=== PATIENT | male | born 1955 | race Caucasian/White ===

== ENCOUNTER → 2016-05-30 | Outpatient (CLI) | payer OTHER | END | disposition home or self-care (01) | LOC: C.PATH 17:15 | PROVIDERS: ATTEND Orthopaedic Surgery Sports Medicine | DX: L72.0 Epidermal cyst (principal) ==

== ENCOUNTER → 2016-09-16 | Outpatient (CLI) | payer OTHER ==
[2016-09-16 13:14] LABS: BASO % 0.7 %; BASO ABS # 0.04 K/uL (0-0.2); COMPLETE YES; EOS % 1.9 %; HEMATOCRIT 45.7 % (42-52); IG% 0.2 %; LYMPH % 35.5 %; LYMPH ABS # 2.01 K/uL (1.2-3.4); MEAN CELL VOLUME 89.1 fL (80-100); MEAN CORPUSCULAR HGB CONC 32.6 g/dl (32-36); MEAN PLATELET VOLUME 9.5 fL (7.4-10.4); MONO % 7.2 %; NEUT % 54.5 %; PLATELET COUNT 231 K/uL (130-400); RED BLOOD COUNT 5.13 M/uL (4.7-6.1); WHITE BLOOD COUNT 5.66 K/uL (4.8-10.8)
[2016-09-16 15:26] LABS: ALT/SGPT 20 U/L (12-78); BLOOD UREA NITROGEN 12 mg/dl (7-18); BUN/CREATININE RATIO 14.3 (10-20); CALCIUM 9.4 mg/dl (8.5-10.1); CARBON DIOXIDE 29 mmol/L (21-32); CHLORIDE 106 mmol/L (98-107); CHOLESTEROL 178 mg/dl (0-200); CREATININE 0.81 mg/dl (0.60-1.40); GLUCOSE 85 mg/dl (70-99); POTASSIUM 4.4 mmol/L (3.5-5.1); SODIUM 140 mmol/L (136-145); TRIGLYCERIDES 62 mg/dl (0-150); VERY LOW DENSITY LIPOPROT CALC 12 mg/dl
[2016-09-16 15:31] LABS: ALB/GLOB RATIO 1.2 (0.9-2); ALKALINE PHOSPHATASE 70 U/L (45-117); AST/SGOT 16 U/L (15-37); CHOLESTEROL/HDL RATIO 2.8; HDL CHOLESTEROL 63 mg/dl; LDL CHOLESTEROL CALCULATED 103 mg/dl
== END | disposition home or self-care (01) ==
LOC: C.LAB 12:36
PROVIDERS: ATTEND Nurse Practitioner Adult Health
DX: Z00.00 Encounter for general adult medical examination without abnormal findings (principal)

== ENCOUNTER 2017-06-05 08:14 | Emergency (ER) | payer OTHER ==
[~2017-06-05] VITALS: Ht 177.8 cm; Wt 73.1 kg
[2017-06-05 08:19] VITALS: TEMP 36.7; Ht 177.8 cm; Wt 73.1 kg
[2017-06-05] MEDS ORDERED: KETOROLAC TROMETHAMINE 30 MG/ML VIAL IV STA (08:32)
[2017-06-05] MEDS ORDERED: ACET-1256 PO (08:44)
[2017-06-05 08:52] LABS: BASO % 0.4 %; BASO ABS # 0.03 K/uL (0-0.2); EOS % 0.6 %; EOS ABS # 0.05 K/uL (0-0.5); HEMATOCRIT 42.9 % (42-52); HEMOGLOBIN 14.6 g/dL (14.0-18.0); IG# 0.01 K/uL (0.00-0.02); LYMPH % 18.9 %; LYMPH ABS # 1.54 K/uL (1.2-3.4); MEAN CELL VOLUME 86.8 fL (80-100); MEAN CORPUSCULAR HEMOGLOBIN 29.6 pg (25-34); MEAN PLATELET VOLUME 9.2 fL (7.4-10.4); MONO % 7.6 %; MONO ABS # 0.62 K/uL (0.11-0.59); NEUT % 72.4 %; PLATELET COUNT 219 K/uL (130-400); RED CELL DISTRIBUTION WIDTH CV 14.1 % (11.5-14.5); RED CELL DISTRIBUTION WIDTH SD 44.7 fL (36.4-46.3); WHITE BLOOD COUNT 8.15 K/uL (4.8-10.8)
[2017-06-05 09:12] LABS: ALBUMIN 3.6 gm/dl (3.4-5.0); CALCIUM 8.7 mg/dl (8.5-10.1); CREATININE 0.84 mg/dl (0.60-1.40); POTASSIUM 4.2 mmol/L (3.5-5.1); TOTAL PROTEIN 7.1 gm/dl (6.4-8.2)
--- NOTE | 2017-06-05 09:22 | DIAGNOSTIC IMAGING REPORT ---
L WRIST MIN 3 VIEWS ROUTINE CLINICAL HISTORY: Left hand and wrist pain following injury. Possible infection. COMPARISON: None FINDINGS: Alignment of the left wrist is anatomic. There is no acute fracture or evidence for osteomyelitis. A 6 mm lucent lesion with sclerotic margin within the scaphoid suggests a cyst. There may be a cyst within the capitate. An 8 mm sclerotic focus within the lunate is likely benign. There is mild soft tissue swelling. IMPRESSION: No acute fracture or evidence of osteomyelitis within the left wrist. Electronically signed by: Carlton Hardy M.D. 06/05/2017 9:21 AM Dictated Date/Time: 06/05/2017 9:18 AM
--- NOTE | 2017-06-05 09:24 | DIAGNOSTIC IMAGING REPORT ---
L HAND MIN 3 VIEWS ROUTINE CLINICAL HISTORY: hand and wrist pain, eval injury, infection COMPARISON: None FINDINGS: A ring on the fourth finger is noted. There are are lucent lesions with sclerotic margins within the capitate and scaphoid which suggest cysts. A focus of sclerosis within the capitate is benign. No fracture or osteolysis is identified within the left hand. 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 IMPRESSION: No fracture or evidence of osteomyelitis within the left hand by radiography. Electronically signed by: Carlton Hardy M.D. 06/05/2017 9:23 AM Dictated Date/Time: 06/05/2017 9:21 AM
--- NOTE | 2017-06-05 11:07 | EMERGENCY ROOM VISIT NOTE ---
ED Visit Note First contact with patient: 08:22 CHIEF COMPLAINT: Left hand/wrist pain HISTORY OF PRESENT ILLNESS: This 61-year-old male patient presents to the emergency department by private vehicle complaining of pain in the left hand and wrist after doing some repetitive twisting motions 2 days ago. The patient is able to move their wrist. The patient states the pain is aching and 8/10. No laceration, no weakness. No numbness or tingling. The patient denies any other injury. The patient is able to move their fingers and elbow without difficulty. The patient has not had a previous fracture to this wrist. The patient has taken Tylenol for the pain. The patient denies fevers or chills. He denies any associated chest pain, SOB, REVIEW OF SYSTEMS: A 6 system review of systems was performed with positives and pertinent negatives in the HPI. ALLERGIES: No known allergies MEDICATIONS: No medications PMH: No significant past medical history. SOCIAL HISTORY: Lives at home. He is a current everyday smoker, 1 pack per day , denies alcohol or recreational drugs. PHYSICAL EXAM: Vital Signs: Reviewed Nurse's notes, vital signs stable. GENERAL : Pleasant and cooperative, in no acute distress, but appears to be in pain, well-developed, well-nourished. NEURO: Alert and oriented to person place and time. Normal sensation to light and sharp touch. MUSCULOSKELETAL: There is no deformity of the left hand or wrist. There is tenderness with palpation of the base of the left palm. There is tenderness with passive and active flexion and extension of the wrist and fingers. There is no edema. There is no erythema or warmth. There is no snuff box tenderness. Range of motion is somewhat limited due to pain. There is no tenderness of the elbow, hand or fingers. 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 Radial pulse 2+. SKIN: Normal and intact. The hand is warm and well perfused with capillary refill less than 2 seconds. EMERGENCY DEPARTMENT COURSE: I examined the patient. Differential diagnosis includes sprain/strain, contusion, cellulitis, tenosynovitis, tendinitis, carpal tunnel syndrome, among others. Basic labs were performed, these appear normal. Patient was given IV Toradol for the pain. An X-ray of the left hand and wrist was reviewed by myself and radiologist and showed no acute abnormalities. A wrist lacer splint was placed under my direction and the position was satisfactory. Neurovascular status rechecked and intact. Patient reports improved pain after the Toradol and placement of the splint. Patient was encouraged to follow-up with his orthopedic doctor next few days for further evaluation of his wrist pain, was given strict return precautions should his symptoms worsen, he verbalized understanding. Patient was discharged home in stable condition and ambulatory. Medication Reconciliation: I attest that I have personally reviewed the patient' s current medication list. Patient was found to have an elevated blood pressure, which was felt to be situational. Current/Historical Medications Scheduled Acetaminophen (Tylenol), 1,000 MG PO DIRECTED Vital Signs Date Time Temp Pulse Resp B/P (MAP) Pulse Ox O2 Delivery O2 Flow Rate FiO2 06/05/17 11:20 72 18 128/84 98 06/05/17 10:21 68 18 124/80 99 Room Air 06/05/17 08:19 36.7 92 18 153/96 97 Room Air Laboratory Results 06/05/17 08:45 Red Blood Count 4.94, Mean Corpuscular Volume 86.8, Mean Corpuscular Hemoglobin 29.6, Mean Corpuscular Hemoglobin Concent 34.0, Mean Platelet Volume 9.2, Neutrophils (%) (Auto) 72.4, Lymphocytes (%) (Auto) 18.9, Monocytes (%) (Auto) 7.6, Eosinophils (%) (Auto) 0.6, Basophils (%) (Auto) 0.4, Neutrophils # (Auto) 5.90, Lymphocytes # (Auto) 1.54, Monocytes # (Auto) 0.62, Eosinophils # (Auto) 0.05, Basophils # (Auto) 0.03 06/05/17 08:45 Test 06/05/17 08:45 White Blood Count 8.15 K/uL (4.8-10.8) Red Blood Count 4.94 M/uL (4.7-6.1) Hemoglobin 14.6 g/dL (14.0-18.0) Hematocrit 42.9 % (42-52) Mean Corpuscular Volume 86.8 fL (80-100) Mean Corpuscular Hemoglobin 29.6 pg (25-34) Mean Corpuscular Hemoglobin Concent 34.0 g/dl (32-36) Platelet Count 219 K/uL (130-400) Mean Platelet Volume 9.2 fL (7.4-10.4) Neutrophils (%) (Auto) 72.4 % Lymphocytes (%) (Auto) 18.9 % Monocytes (%) (Auto) 7.6 % Eosinophils (%) (Auto) 0.6 % Basophils (%) (Auto) 0.4 % Neutrophils # (Auto) 5.90 K/uL (1.4-6.5) Lymphocytes # (Auto) 1.54 K/uL (1.2-3.4) Monocytes # (Auto) 0.62 K/uL (0.11-0.59) Eosinophils # (Auto) 0.05 K/uL (0-0.5) Basophils # (Auto) 0.03 K/uL (0-0.2) RDW Standard Deviation 44.7 fL (36.4-46.3) RDW Coefficient of Variation 14.1 % (11.5-14.5) Immature Granulocyte % (Auto) 0.1 % Immature Granulocyte # (Auto) 0.01 K/uL (0.00-0.02) Erythrocyte Sedimentation Rate 7 mm/hr (0-14) Anion Gap 2.0 mmol/L (3-11) Est Creatinine Clear Calc Drug Dose 95.4 ml/min Estimated GFR () 109.5 Estimated GFR (Non- 94.5 BUN/Creatinine Ratio 16.3 (10-20) Calcium Level 8.7 mg/dl (8.5-10.1) Total Bilirubin 0.4 mg/dl (0.2-1) Aspartate Amino Transf (AST/SGOT) 16 U/L (15-37) Alanine Aminotransferase (ALT/SGPT) 19 U/L (12-78) Alkaline Phosphatase 87 U/L (45-117) C-Reactive Protein 0.75 mg/dl (0-0.29) Total Protein 7.1 gm/dl (6.4-8.2) Albumin 3.6 gm/dl (3.4-5.0) Globulin 3.5 gm/dl (2.5-4.0) Albumin/Globulin Ratio 1.0 (0.9-2) Chemistry Specimen Hemolysis Medications Administered Medications (Trade) Dose Ordered Sig/Drew Route Start Time Stop Time Status Last Admin Dose Admin Ketorolac Tromethamine (Toradol Inj) 15 mg NOW STAT IV 06/05/17 08:32 06/05/17 08:36 DC 06/05/17 08:55 15 MG Departure Information Impression Primary Impression: Left wrist sprain Dispostion Home / Self-Care Condition GOOD Referrals No Doctor, Assigned (PCP) Gonzalo Betancourt M.D. Patient Instructions ED Sprain Wrist, [facility] Additional Instructions DISCHARGE INSTRUCTIONS & TREATMENT: You have been evaluated and treated in the emergency department today for your left hand and wrist pain. Please wear the wrist splint for the next several days until the pain subsides. You may alternate between ice and heat to the area of pain to help with discomfort and swelling. Keep the wrist elevated as much as possible. For pain, you may take ibuprofen 600 mg every 6-8 hours and/or Tylenol 1000 mg every 8 hours as needed. Please follow-up with your orthopedic surgeon for recheck in the next few days. Work Instructions Return To Work: 1 day Problem Qualifiers Primary Impression: Left wrist sprain Encounter type: initial encounter Qualified Codes: S63.502A - Unspecified sprain of left wrist, initial encounter
[2017-06-05 11:20] VITALS: BP 128/84; PULSE 72; O2SAT 98
== END 2017-06-05 11:21 | disposition home or self-care (01) ==
LOC: C.EDB 08:15 → C.EDA 11:21
DX: S63.502A Unspecified sprain of left wrist, initial encounter (principal); X50.1XXA Overexertion from prolonged static or awkward postures, initial encounter; F17.210 Nicotine dependence, cigarettes, uncomplicated

== ENCOUNTER 2023-07-15 09:29 | Inpatient (IN) ==
--- NOTE | 2023-06-05 09:26 | PAT Medication Instructions ---
Medication Instructions Date of Service June 05, 2023 Home Medications Galique 1,000 mg PO QAM naproxen 500 mg tablet 500 mg PO BID PRN Pain tamsulosin 0.4 mg capsule 0.4 mg PO QAM ASK your surgeon for instructions naproxen 500 mg tablet 500 mg PO BID PRN Pain STOP taking 2 weeks before surgery (or as soon as possible if surgery is within 2 weeks) Galique 1,000 mg PO QAM Take morning of surgery With a small sip of water, OTHERWISE NOTHING TO EAT OR DRINK AFTER MIDNIGHT: tamsulosin 0.4 mg capsule 0.4 mg PO QAM Other Notes If you have any questions please call us at [phone] or [phone] or [phone] or [phone]
--- NOTE | 2023-06-17 10:22 | Anesthesiology Consultation ---
Date of Service June 17, 2023 Assessment & Plan (1) Encounter for pre-operative examination: - Infectious disease screening: Per assessment on 06/17/23: No known infectious disease contacts or current infectious disease symptoms. No noted recent Covid positive test result. - Patient acceptable risk for surgery pending surgeon-ordered PCP preop evaluation ([facility] in [place], appt ~06/30). Chart Review Chart Review: Patient seen in Pre Admission Testing History Surgery Operation Date: 07/13/23 07:45 Proposed Procedures p L3-L5 Decompression and Fusion Spinal Cord Monitoring - Jacques Wang, DO Height/Weight Height: 5 ft 10 in Weight: 81.5 kg Allergies Allergy/AdvReac Type Severity Reaction Status Date / Time oxycodone [From Percocet] AdvReac Mild N/V Verified 06/09/23 13:15 Medications Home Medications Medication Instructions Recorded Confirmed Last Taken Galique 1,000 mg PO QAM 06/03/23 06/03/23 Unknown naproxen 500 mg tablet 500 mg PO BID PRN Pain 06/03/23 06/03/23 Unknown tamsulosin 0.4 mg capsule 0.4 mg PO QAM 06/03/23 06/03/23 Unknown Past Medical History Medical History BPH (benign prostatic hyperplasia) Hearing loss History of kidney stones Lumbar back pain Scoliosis Exercise / Class Metabolic Activity II 4-5 Yardwork/Stairs/Walk up hill (one FS: no CP, no COB) Past Family History Family History Other No family history of adverse response to anesthesia Past Surgical History Surgical History History of decompression of ulnar nerve Right History of prostate biopsy History of repair of right rotator cuff Past Anesthesia History No Hx of Anesthesia Complications and No Family Hx of Anesthesia Complications History of PONV No Hx of PONV and No Hx of Motion Sickness Social History Smoking Status: Former smoker Do You Dip or Chew Tobacco: No Smoking End Date: Quit 04/29/23 Hx Alcohol Use: No (Hx ETOH use age 20s) Hx Substance Use: No substance use type: does not use Review of Systems Patient denies chest pain, shortness of breath, dyspnea on exertion, fever, chills, cough, wheezing, palpitations. Physical Exam Vital Signs BP 113/71 P 70 TEMP 98.2 SP02 96%RA RESP 16 Physical Full cervical extension range of motion. Full TMJ range of motion. TMD 3 finger breaths Mallampati Score 2 Dentition: missing side/molar Lungs: mild lung base crackles Cardiac: regular rate and rhythm, no murmurs noted Spine: normal Carotid arteries: negative bruit Extremities: no LE edema Lab Results Anesthesia Preop Results Results Anesthesia Widget: WBC 5.52 K/ul (4.8-10.8) 06/17/23 Hgb 14.3 g/dl (14.0-18.0) 06/17/23 Hct 43.2 % (42.0-52.0) 06/17/23 Plt 243 K/uL (130-400) 06/17/23 Na 141 mmol/L (136-145) 06/17/23 K 4.2 mmol/L (3.5-5.1) 06/17/23 Cl 107 mmol/L (98-107) 06/17/23 CO2 28 mmol/L (21-32) 06/17/23 BUN 16 mg/dl (6-23) 06/17/23 Creat 0.79 mg/dl (0.6-1.4) 06/17/23 Glucose Level 128 mg/dl (70-99(Fasting)) H 06/17/23 PT 10.4 Seconds (9.0-12.0) 06/17/23 PTT 27 Seconds (21-31) 06/17/23 INR 1.0 (0.9-1.1) 06/17/23 Urine Color Yellow 06/17/23 Urine Appearance Clear (Clear) 06/17/23 Urine pH 6.0 (4.5-7.5) 06/17/23 Urine Specific Leonard 1.016 (1.000-1.030) 06/17/23 Urine Protein Negative (Negative) 06/17/23 Urine Glucose (UA) Negative (Negative) 06/17/23 Urine Ketones Negative (Negative) 06/17/23 Urine Blood Negative (Negative) 06/17/23 Urine Nitrite Negative (Negative) 06/17/23 Urine Bilirubin Negative (Negative) 06/17/23 Urine Urobilinogen Negative (Negative) 06/17/23 Urine Leukocyte Esterase 1+ (Negative) H 06/17/23 Urine WBC (Auto) 0-5 /hpf (0-5) 06/17/23 Urine RBC (Auto) 0-2 /hpf (0-2) 06/17/23 Urine Hyaline Casts (Auto) 0-2 /lpf (0-2) 06/17/23 Urine Epithelial Cells (Auto) 0-2 /hpf (0-2) 06/17/23 Urine Bacteria (Auto) None Seen (None Seen) 06/17/23 Blood Type O Negative 06/17/23 Antibody Screen NEGATIVE 06/17/23 Testing Electrocardiogram Date: 06/17/23 NSR at 64bpm. iRBBB. Chest X-Ray Date: 06/17/23 FINDINGS: Lung volumes are normal. Lungs are clear. There is no pneumothorax or pleural effusion. Cardiac size is normal. Mediastinal contours are normal. There is no evidence for pulmonary edema. IMPRESSION: No acute cardiopulmonary findings.
--- NOTE | 2023-07-15 09:04 | History & Physical Bridge Note ---
Date of Service July 15, 2023 History & Physical Bridge Note I have examined the patient, reviewed the History & Physical and in the interval since the performance of the History & Physical I have noted the following changes of clinical significance: no changes noted
--- NOTE | 2023-07-15 09:08 | History & Physical Report ---
Date of Service July 15, 2023 Assessment & Plan (1) Neurogenic claudication due to lumbar spinal stenosis: Plan: Lumbar decompression and fusion L3-L5 History of Present Illness Chief Complaint: Back and bilateral leg pain Primary Care Provider: MAGGIE Bajwa This is a 67-year-old male who presents with chronic persistent back and bilaterally pain after failing course of nonoperative care is here for surgical intervention. Allergies Allergy/AdvReac Type Severity Reaction Status Date / Time oxycodone [From Percocet] AdvReac Mild N/V Verified 06/09/23 13:15 Home Medications Medication Instructions Recorded Confirmed Type Galique 1,000 mg PO QAM 06/03/23 06/03/23 History naproxen 500 mg tablet 500 mg PO BID PRN Pain 06/03/23 06/03/23 History tamsulosin 0.4 mg capsule 0.4 mg PO QAM 06/03/23 06/03/23 History Past Med/Surg History Problem List (Updated 07/15/23 @ 09:08 by Jacques Wang DO) Neurogenic claudication due to lumbar spinal stenosis Medical History BPH (benign prostatic hyperplasia) Hearing loss History of kidney stones Lumbar back pain Scoliosis Surgical History History of decompression of ulnar nerve Right History of prostate biopsy History of repair of right rotator cuff Family History Other No family history of adverse response to anesthesia Social History Smoking Status: Former smoker Tobacco Type: Cigarettes Smoking End Date: Quit 04/29/23; Second Hand Exposure: No; Do You Dip or Chew Tobacco: No; Tobacco Cessation Education Requested by Patient: No Hx Alcohol Use: No (Hx ETOH use age 20s) Hx Substance Use: No Preferred Language: Sinhala Communication Ability: Effective Tool And [employer] Manager Required: No Beliefs That Will Affect Care: None Current Living Situation: Spouse and Family Current Living Situation Comment: Lives with and son Other Information That Helps Us Care for You: No Feels Safe at Home: Yes Safety Concerns: Feels Safe At This Time Assistive Devices: Glasses and Hearing Aid - Bilateral Physical Exam Physical Exam: Patient is alert and oriented Heart regular in rhythm Lungs clear
[~2023-07-15 09:29] MED LIST: DEXAMETHASONE SOD INJ 4 MG/ML VIAL ONE; LIDOCAINE 2% 2 ML VIAL/AMP(20MG/ML) INFIL ONE; MIDAZOLAM HCL 1 MG/ML 2ML VIAL ONE; ONDANSETRON INJ 2 MG/ML 2 ML VIAL ONE; PROPOFOL IV EMULSION 10 MG/ML 20 ML VIAL IV ONE; ROCURONIUM BROMIDE 10 MG/ML 5 ML VIAL IV ONE; SUGAMMADEX SODIUM 200 MG/2 ML VIAL IV ONE; fentaNYL citrate PF 100 MCG/2 ML VIAL ONE
[2023-07-15] MEDS ORDERED: ONDANSETRON INJ 2 MG/ML 2 ML VIAL IV PRN ×2 (09:55→14:54)
[2023-07-15] MEDS ORDERED: ePHEDrine sulfate 50 MG/ML AMP IV PRN (09:55)
[2023-07-15] MEDS ORDERED: ATROPINE SULFATE 0.1 MG/ML 10ML SYR IV PRN (09:55)
[2023-07-15] MEDS: LR 15ML/HR IV SCH ×2 (10:00→14:37)
[2023-07-15] MEDS: CeleBREX 200 MG CAP PO SCH ×2 (10:01→14:36)
[2023-07-15] MEDS: GABAPENTIN 300 MG CAP PO SCH ×2 (10:01→14:36)
[2023-07-15] MEDS: ACETAMINOPHEN 500 MG TAB PO SCH ×2 (10:01→14:36)
[2023-07-15] MEDS: LR 60ML/HR IV SCH ×2 (10:02→14:37)
[2023-07-15] MEDS: ceFAZolin 2000MG 2,000 MG/15 ML SYR IV SCH ×3 (10:14→17:47)
[2023-07-15] MEDS ORDERED: GLYCOPYRROLATE 0.2 MG/ML VIAL ONE (10:40)
[2023-07-15] MEDS ORDERED: ePHEDrine sulfate 50 MG/5 ML SYR ONE (10:45)
[2023-07-15] MEDS: ceFAZolin 330 MG/ML 1 GM VIAL ONE (11:01)
[2023-07-15] MEDS: BUPIVACAINE/EPINEPHRINE 0.25% 1:200,000 30 ML VIAL ONE (12:13)
--- NOTE | 2023-07-15 12:19 | Operative Report ---
Post Operative Report Pre & Post Diagnosis Operation Date: 07/15/23 11:25 Pre-Op Diagnosis: Spinal Stenosis, Lumbar Region Neurogenic Claudication Neuroforaminal stenosis L3-L4 L4-5 Post-Op Diagnosis: Same I identified the patient and participated in the time-out.: Yes Procedure Operation Date: 07/15/23 11:25 Actual Procedures #1 number decompression bilateral medial facetectomies and foraminotomies L3-L4 L4-5. #2 posterior spinal fusion L3-L5. #3 placed posterior instrumentation L3-L5. #4 interbody fusion L3-L4 L4-5 #5 placement of Spira 12 x 26 mm at L3-L4 and 14 x 26 mm x 2 at L4-L5. #6 placement locally harvested morselized autograft in the posterior gutters. #7 placement of infuse collagen sponge, with Koros in the posterior gutters and Morpheus bone graft interbody space. Surgeon Jacques Wang, Supervisor Costuming Parul Ramirez Estimated Blood Loss 200 Findings Consistent with Post-Op Diagnosis Specimens None Indications This is a 67-year-old male presents above-mentioned diagnosis. Course of nonoperative care is here for surgical invention. Description of Procedure Patient was met with identified informed consent obtained. Patient was then taken to the operative suite underwent patient placed in a prone position on the Juan Luis table top the Jabier frame. All bony prominences well-padded eyes inspected to ensure no external precipice spinal. This point the lumbar spine was prepped and draped in normal sterile fashion. Sharp dissection with the ass istance of Bovie cautery form down to and exposing the lamina transverse processes of L3-L4-L5 bilaterally. For calcified fashion complete laminectomy L4 was performed including bilateral medial facetectomies and foraminotomies addressing all spinal stenosis. I then performed a complete laminectomy of L3 including bilateral medial facetectomies and foraminotomies addressing severe spinal stenosis. Pedicle screws then placed in L3-L4-L5 bilaterally with assistance of fluoroscopy and proper size geno placed. By way of transforaminal approach on the left a discectomy of L for L5 was performed endplates guarded to subcortical bleeding bone and the 14 x 26 mm spiral cage filled with Morpheus bone graft tapped in position. Then proceeded to L3-L4 by way of transforaminal approach on the left complete discectomy performed endplates guided to subcortical bleeding bone and a 12 x 26 mm spiral cage filled with Morpheus bone graft tapped in position. Then proceeded to the right transforaminal region at L4-L5 completed the discectomy endplates guided to subcortical bleeding bone and placed a second 14 x 26 mm Spira cage with Morpheus bone graft into position. The rods were then compressed locked in final position bilaterally. The transverse processes of L3 L4-5 burred to subcortical bleeding bone. Infuse collagen sponge combined with Koros bone graft and local autograft placed in the posterior gutters. 15 round BECKY inserted. The incision was then closed with 1 Vicryl to fascia 2-0 Vicryl subcutaneously and 4 Monocryl for final skin closure. Steri-Strips sterile dressing placed. Patient awakened taken to the PACU in stable condition. Please note spinal cord monitoring was utilized at the procedure no changes noted. Lastly Parul Ramirez was present at the entire surgery involved the patient positioning complex course of the surgery and final skin closure. I attest to the content of the Intraoperative Record and any orders documented therein. Any exceptions are noted below.
[2023-07-15] MEDS: fentaNYL citrate PF 100 MCG/2 ML VIAL IV PRN (13:03)
--- NOTE | 2023-07-15 13:05 | Anesthesiology Progress Note ---
Date of Service July 15, 2023 Anesthesia Post Procedure Vital Signs Vital Signs: Temp Pulse Pulse Resp BP Pulse Ox O2 Del Method 07/15/23 13:00 82 12 111/74 99 Nasal Cannula 07/15/23 12:50 83 16 109/72 99 Nasal Cannula 07/15/23 12:40 88 16 112/66 98 Nasal Cannula 07/15/23 12:30 96.8 F L 82 14 120/72 99 Nasal Cannula 07/15/23 09:50 98.2 F 66 20 146/88 H 98 Room Air O2 Flow Rate 07/15/23 13:00 2 07/15/23 12:50 2 07/15/23 12:40 3 07/15/23 12:30 3 07/15/23 09:50 Pain Intensity Back: Pain Intensity: 5 Transfer of Care Handoff Completed per policy Notes Mental Status: alert / awake / arousable and participated in evaluation Patient Amnestic to Procedure: Yes Nausea / Vomiting: adequately controlled Pain: adequately controlled Airway Patency, RR, SpO2: stable & adequate BP & HR: stable & adequate Hydration State: stable & adequate Anesthetic Complications: no major complications apparent and Pt Satisfied with anesthetic care
--- NOTE | 2023-07-15 14:04 | Fluoroscopy Report ---
INTRAOPERATIVE RADIOGRAPHS CLINICAL HISTORY: L3-L5 spinal fusion. Fluoro time: 18 seconds Ka,r: 11.89 mGy FINDINGS: 2 spot fluoroscopic views of the lumbar spine are presented. There has been discectomy at L 3-L4 and L4-L5 with laminectomy and posterior fusion at L3-L5. Interpedicular screws are present at a ll levels. The orthopedic hardware appears intact. IMPRESSION: Intraoperative images from lumbar spinal fusion surgery as above. Electronically signed by: Marcus Ewing M.D. 07/15/2023 2:02 PM
[2023-07-15] MEDS: FLOSEAL HEMOSTATIC MATRIX 10ML TOP ONE (14:37)
[2023-07-15] MEDS: LACTATED RINGER'S 1,000 ML IV SCH (14:50)
[2023-07-15] MEDS ORDERED: ONDANSETRON 4 MG OD TAB PO PRN (14:54)
[2023-07-15] MEDS ORDERED: HYDROmorphone INJ 0.5 MG/0.5 ML SYR IV PRN (14:54)
[2023-07-15] MEDS ORDERED: METOCLOPRAMIDE HCL INJ 5 MG/ML 2 ML VIAL IV PRN (14:54)
[2023-07-15] MEDS ORDERED: PROMETHAZINE HCL 12.5 MG in SODIUM CHLORIDE 0.9% 50 ML IV PRN (14:54)
[2023-07-15] MEDS ORDERED: hydrOXYzine HCl 25 MG TAB PO PRN (14:54)
[2023-07-15] MEDS ORDERED: LORazepam 0.5 MG in SYRINGE 0.25 ML IV PRN (14:54)
[2023-07-15] MEDS ORDERED: DO NOT ADMINISTER PNEUMOCOCCAL VACCINE PRN (14:54)
[2023-07-15] MEDS ORDERED: NALOXONE HCL 0.4 MG/1 ML VIAL/CARP IV PRN (14:54)
[2023-07-15] MEDS ORDERED: MAGNESIUM HYDROXIDE SUSP 30 ML UDC PO PRN (14:54)
[2023-07-15] MEDS ORDERED: DO NOT ADMINISTER FLU VACCINE PRN (14:54)
[2023-07-15] MEDS ORDERED: LORazepam 0.5 MG TAB PO PRN (14:54)
[2023-07-15] MEDS ORDERED: SOD PHOSPHATE/SOD BIPHOSPHATE ENEMA 132 ML BTL PR PRN (14:54)
[2023-07-15] MEDS ORDERED: ACETAMINOPHEN 500 MG TAB PO PRN (14:54)
[2023-07-15] MEDS ORDERED: bisacodyL 10 MG SUPP PR PRN (14:54)
[2023-07-15] MEDS ORDERED: HYDROmorphone INJ 1 MG/ML SYRINGE IV PRN (14:54)
[2023-07-15] MEDS ORDERED: diphenhydrAMINE Capsule 25 MG CAP PO PRN (14:54)
[2023-07-15] MEDS ORDERED: FAMOTIDINE 20 MG TAB PO PRN (14:54)
--- NOTE | 2023-07-15 15:32 | Consultation ---
Date of Consultation July 15, 2023 Assessment & Plan (1) Neurogenic claudication due to lumbar spinal stenosis: In short, Mr. Mirza is a 67 year old gentleman now s/p lumbar decompression and fusion of L3-L5 #Neurogenic claudication s/p lumbar decompression/fusion L3-L5 POD [address] Wang 07/15/2023 PT/OT per primary analgesia and DVTppx per PCP -CBC in am for monitoring of post-op anemia -Hgb preop 14.3 -BMP in am for monitoring renal fx #BPH continue tamsulosin # prior tobacco use encouraged continued cessation DVT SCDs Dispo 1-2 days, per primary Thank you for this consultation. We will follow the patient with you during their hospital stay. You can reach a member of the [facility] Hospitalist Team 01/09 via [employer] History of Present Illness Requesting Physician: Kathleen Reason for Consultation: Medical Comanagement Attending Physician: Jacques Wang, DO History of Present Illness Mr. Jacques Mirza is a 67 year old gentleman with a history of BPH, prior tobacco use, and neurogenic claudication s/p lumbar decompression/fusion L3-L5. Medicine consulted for comanagement. Patient states he has been doing very well, notes tobacco cessation since April. Denies any current chest pain, SOB, uncontrolled post-operative pain. Reports radiculopathy in left leg is not present at this time and that he feels optimistic post-operatively. Allergies Allergy/AdvReac Type Severity Reaction Status Date / Time oxycodone [From Percocet] AdvReac Mild N/V Verified 07/15/23 09:54 Home Medications Medication Instructions Recorded Confirmed Type Galique 1,000 mg PO QAM 06/03/23 07/15/23 History naproxen 500 mg tablet 500 mg PO BID PRN Pain 06/03/23 07/15/23 History tamsulosin 0.4 mg capsule 0.4 mg PO QAM 06/03/23 07/15/23 History cholecalciferol (vitamin D3) 125 125 mcg PO DAILY 07/15/23 07/15/23 History mcg (5,000 unit) tablet (Vitamin D3) Patient History Medical History BPH (benign prostatic hyperplasia) Hearing loss History of kidney stones Lumbar back pain Scoliosis Surgical History History of decompression of ulnar nerve Right History of prostate biopsy History of repair of right rotator cuff Family History Other No family history of adverse response to anesthesia Social History Smoking Status: Former smoker Tobacco Type: Cigarettes Smoking End Date: Quit 04/29/23; Second Hand Exposure: No; Do You Dip or Chew Tobacco: No; Tobacco Cessation Education Requested by Patient: No Hx Alcohol Use: No (Hx ETOH use age 20s) Hx Substance Use: No Preferred Language: Serbian Communication Ability: Effective Surgical Technologist Required: No Beliefs That Will Affect Care: None Current Living Situation: Spouse and Family Current Living Situation Comment: Lives with and son Other Information That Helps Us Care for You: No Feels Safe at Home: Yes Safety Concerns: Feels Safe At This Time Assistive Devices: Cane Review of Systems Review of Systems: Constitutional: (-) fever/chills, (-) recent loss of weight, (-) appetite changes, (-) night sweats. Head: (-) headache, (-) dizziness. Eye: (-) blurring of vision, (-) double vision, (-) redness. Ear: (-) hearing loss, (-) discharge, (-) vertigo Nose: (-) discharge, (-) bleeding, (-) congestion, (-) post nasal drip. Throat: (-) sore throat, (-) hoarseness of voice, (-) odynophagia. Cardiovascular: (-) chest pain, (-) palpitations, (-) syncope, (-) orthopnea, (- ) PND, (-) leg swelling. Respiratory: (-) shortness of breath, (-) cough, (-) wheezing, (-) hemoptysis. Neuro: (-) weakness in extremities, (-) numbness, (-) tingling, (-) tremor. Gastrointestinal: (-) belly pain, (-) belly distension, (-) nausea, (-) vomiting, (-) diarrhea, (-) constipation, (-) na, (-) hematemesis, (-) hematochezia, (-) bowel incontinence Genitourinary: (-) hematuria, (-) dysuria, (-) polyuria, (-) hesitancy, (-) frequency, (-) urinary incontinence. Musculoskeletal: (-) myalgia, (-) arthralgia. Skin: (-) rashes. Endocrine: (-) heat/cold intolerance. Psychiatry: (-) depression, (-) hallucination. Physical Exam Physical Exam: GENERAL APPEARANCE: AxOx4, generally well-appearing M no acute distress. HEENT: NC, AT. MMM. EOMI, clear conjunctiva, oropharynx clear. NECK: Supple without lymphadenopathy. No stiffness or restricted ROM. HEART: Normal rate and regular rhythm, normal S1/S1, no m/r/g LUNGS: CTAB, moving air well. No crackles or wheezes are heard. ABDOMEN: Soft, nontender, nondistended with good bowel sounds heard. EXTREMITIES: Without cyanosis, clubbing or edema. NEUROLOGICAL: Grossly nonfocal. Alert and oriented, moving all 4 extremities. CN not formally tested but appear grossly intact. Skin: Warm and dry without any rash. Results & Data Vital Signs (Past 12 Hours) Vital Signs Temp Pulse Pulse Resp BP Pulse Ox O2 Del Method 07/15/23 15:19 36.4 C L 105 H 16 119/76 94 Room Air 07/15/23 14:45 36.5 C 107 H 16 105/69 94 Room Air 07/15/23 14:35 94 H 16 116/75 96 Nasal Cannula 07/15/23 14:20 96 H 12 111/68 95 Nasal Cannula 07/15/23 14:10 95 H 12 109/70 95 Nasal Cannula 07/15/23 13:55 93 H 12 102/72 95 Nasal Cannula 07/15/23 13:40 88 12 108/71 95 Nasal Cannula 07/15/23 13:30 90 12 113/73 96 Nasal Cannula 07/15/23 13:20 36.7 C 89 16 117/80 97 Nasal Cannula 07/15/23 13:10 82 16 119/80 97 Nasal Cannula 07/15/23 13:00 82 12 111/74 99 Nasal Cannula 07/15/23 12:50 83 16 109/72 99 Nasal Cannula 07/15/23 12:40 88 16 112/66 98 Nasal Cannula 07/15/23 12:30 36.0 C L 82 14 120/72 99 Nasal Cannula 07/15/23 09:50 36.8 C 66 20 146/88 H 98 Room Air O2 Flow Rate 07/15/23 15:19 07/15/23 14:45 07/15/23 14:35 2 07/15/23 14:20 2 07/15/23 14:10 2 07/15/23 13:55 2 07/15/23 13:40 2 07/15/23 13:30 2 07/15/23 13:20 2 07/15/23 13:10 2 07/15/23 13:00 2 07/15/23 12:50 2 07/15/23 12:40 3 07/15/23 12:30 3 07/15/23 09:50 Medications Administered Home Medications Medication Instructions Recorded Confirmed Last Taken Galique 1,000 mg PO QAM 06/03/23 07/15/23 Unknown naproxen 500 mg tablet 500 mg PO BID PRN Pain 06/03/23 07/15/23 Unknown tamsulosin 0.4 mg capsule 0.4 mg PO QAM 06/03/23 07/15/23 07/15/23 06:15 cholecalciferol (vitamin D3) 125 125 mcg PO DAILY 07/15/23 07/15/23 07/15/23 06:15 mcg (5,000 unit) tablet (Vitamin D3) Active Medications Generic Name Dose Route Start Last Admin Trade Name Freq PRN Reason Stop Dose Admin Acetaminophen 1,000 mg 07/15/23 06:00 07/15/23 14:36 Acetaminophen 500 Mg Tab PO 07/15/23 18:00 Not Given PREOP MARIA D Celecoxib 200 mg 07/15/23 06:00 07/15/23 14:36 Celebrex 200 Mg Cap PO 07/15/23 18:00 Not Given PREOP MARIA D Fentanyl Citrate 50 mcg 07/15/23 09:55 07/15/23 13:08 Fentanyl Citrate Pf 100 Mcg/2 Ml Vial IV 07/15/23 17:55 50 mcg Q5M PRN Administration PACU Use Only-Pain Gabapentin 300 mg 07/15/23 06:00 07/15/23 14:36 Gabapentin 300 Mg Cap PO 07/15/23 18:00 Not Given PREOP MARIA D Lactated Ringer's 1,000 mls @ 15 mls/hr 07/15/23 06:00 07/15/23 14:37 Lr IV 07/16/23 05:59 Not Given .Q24H MARIA D Lactated Ringer's 1,000 mls @ 60 mls/hr 07/15/23 06:00 07/15/23 14:37 Lr IV 07/15/23 22:39 Not Given .[id number] MARIA D Cefazolin Sodium 2,000 mg in 15 mls @ 3.75 mls/min 07/15/23 06:00 07/15/23 10:14 Ancef 2000mg IV 07/15/23 18:00 3.75 mls/min PREOP MARIA D Administration Protocol Lactated Ringer's 1,000 mls @ 100 mls/hr 07/15/23 14:54 07/15/23 14:50 Lr IV 08/14/23 14:53 100 mls/hr .Q10H MARIA D Administration
[2023-07-15] MEDS: oxyCODONE HCL IR 5 MG TAB (IMMEDIATE RELEASE) PO PRN (21:21)
[2023-07-15] MEDS: DOCUSATE SODIUM/SENNA 50/8.6MG TAB PO SCH (21:21)
[2023-07-16] MEDS: ALUMINUM/MAGNESIUM SUSP 30 ML UDC PO PRN (03:08)
[2023-07-16] MEDS: ACETAMINOPHEN 1,000 MG/100 ML VIAL IV PRN (03:11)
[2023-07-16] MEDS: POLYETHYLENE (MIRALAX) 17 GM PACK PO SCH (05:55)
[2023-07-16 06:18] LABS: BUN Creatinine Ratio 22.2 (10-20); Calcium 8.9 mg/dl (8.6-10.3); Creatinine Clr Calc Pharmacy 102.8 ml/min; Est GFR (African American) 111.9 ml/min; Est GFR (Non-African American) 96.5 ml/min; Potassium 4.3 mmol/L (3.5-5.1)
[2023-07-16 06:20] LABS: Basophils # (auto) 0.02 K/uL (0.00-0.20); Basophils % (auto) 0.1 %; Eosinophils # (auto) 0.02 K/uL (0.00-0.50); Eosinophils % (auto) 0.1 %; Hematocrit (blood only) 35.8 % (42.0-52.0); Hemoglobin 11.9 g/dl (14.0-18.0); Immature Granulocytes # (auto) 0.06 K/uL (0.01-0.20); Immature Granulocytes % (auto) 0.4 %; Lymphocytes # (auto) 1.82 K/uL (1.20-3.40); Lymphocytes % (auto) 12.7 %; Mean Corpuscular Hemoglobin 28.7 pg (25.0-34.0); Mean Corpuscular Hgb Conc 33.2 g/dL (32.0-36.0); Mean Corpuscular Volume 86.3 fL (80.0-100.0); Mean Platelet Volume 9.3 fL (9.4-12.4); Monocytes # (auto) 1.08 K/uL (0.11-0.59); Monocytes % (auto) 7.6 %; Neutrophils % (auto) 79.1 %; Platelet Count 246 K/uL (130-400); RDW Coefficient of Variation 13.7 % (11.5-14.5); RDW Standard Deviation 43.1 fL (36.4-46.3); Red Blood Count 4.15 M/uL (4.70-6.10)
[2023-07-16] MEDS: TAMSULOSIN HCL 0.4 MG CAP PO SCH ×2 (07:57→19:32)
[2023-07-16] MEDS: CHOLECALCIFEROL 125 MCG (5,000 UNITS) TAB PO SCH (07:57)
[2023-07-16] MEDS ORDERED: KETOROLAC TROMETHAMINE 15 MG/ML VIAL IV PRN (08:19)
--- NOTE | 2023-07-16 08:20 | Orthopedic Progress Note ---
Date of Service July 16, 2023 Assessment & Plan (1) Neurogenic claudication due to lumbar spinal stenosis: Plan: At this time continue physical therapy monitor BECKY operatively discharge home next few days. Admission and Anticipated Discharge Date Admission Date: July 15, 2023 Subjective Back pain is controlled leg pain improved Physical Exam Physical Exam: Patient is currently sitting up in bed. Discussed when to testing. Peers comfortable. Results & Data Vital Signs (Past 12 Hours) Vital Signs Temp Pulse Resp BP Pulse Ox O2 Del Method 07/16/23 07:43 36.8 C 75 16 115/78 97 Room Air 07/16/23 03:00 36.7 C 85 16 118/74 96 Room Air 07/15/23 23:00 36.8 C 93 H 16 115/77 96 Room Air
[2023-07-16] MEDS: KETOROLAC TROMETHAMINE 15 MG/ML VIAL IV ONE (08:43)
[2023-07-16] MEDS: dexAMETHasone 6 MG in SYRINGE 0 ML IV SCH (08:43)
--- NOTE | 2023-07-16 14:54 | Hospitalist Progress Note ---
Date of Service July 16, 2023 Assessment & Plan (1) Neurogenic claudication due to lumbar spinal stenosis: Plan: In short, Mr. Mirza is a 67 year old gentleman now s/p lumbar decompression and fusion of L3-L5 Neurogenic claudication s/p lumbar decompression/fusion L3-L5 POD 0 Acute blood loss anemia Performed by Dr Wang 07/15/2023 PT/OT per primary analgesia and DVTppx per PCP CBC downtrended to 11.9 today. BUN/Cr wnl. PT/OT pain control #BPH continue tamsulosin # prior tobacco use encouraged continued cessation DVT SCDs Thank you for this consultation. We will follow the patient with you during their hospital stay. You can reach a member of the [facility] Hospitalist Team 01/09 via [employer] [facility] Admission and Anticipated Discharge Date Admission Date: July 15, 2023 Subjective Patient seen and examined at bedside. Comfortable; not in distress. Denies fever, chills, chest pain, shortness of breath, abdominal pain or urinary symptoms. No significant overnight events Review of Systems Review of Systems: All systems reviewed & are unremarkable except as noted in Subjective Physical Exam Physical Exam: GENERAL APPEARANCE: AxOx4, generally well-appearing M no acute distress. HEENT: NC, AT. MMM. EOMI, clear conjunctiva, oropharynx clear. NECK: Supple without lymphadenopathy. No stiffness or restricted ROM. HEART: Normal rate and regular rhythm, normal S1/S1, no m/r/g LUNGS: CTAB, moving air well. No crackles or wheezes are heard. ABDOMEN: Soft, nontender, nondistended with good bowel sounds heard. EXTREMITIES: Without cyanosis, clubbing or edema. NEUROLOGICAL: Grossly nonfocal. Alert and oriented, moving all 4 extremities. CN not formally tested but appear grossly intact. Skin: Warm and dry without any rash. Results & Data Results & Data Vital Signs (Past 12 Hours) Vital Signs Temp Pulse Resp BP Pulse Ox O2 Del Method 07/16/23 07:43 36.8 C 75 16 115/78 97 Room Air 07/16/23 03:00 36.7 C 85 16 118/74 96 Room Air
[2023-07-16] MEDS: traMADol HCL 50 MG TABLET PO PRN (19:32)
--- NOTE | 2023-07-17 11:26 | Discharge Summary ---
Date of Service July 17, 2023 Admission HPI Per Admitting Provider This is a 67-year-old male who presents with chronic persistent back and bilaterally pain after failing course of nonoperative care is here for surgical intervention. Principal Diagnosis Lumbar spinal stenosis with radiculopathy Discharge Data Allergies Allergy/AdvReac Type Severity Reaction Status Date / Time oxycodone [From Percocet] AdvReac Mild N/V Verified 07/15/23 09:54 Consultations 07/15/23 14:54 Consult Hospitalist Routine Procedures Performed Operation Date: 07/15/23 11:25 Actual Procedures p L3-L5 Decompression and Fusion, Spinal Cord Monitoring(Not Applicable) - Jacques Wang DO Ordered Studies 07/15/23 11:25 FL lumbar spine 2-3V Routine Hospital Course (1) Neurogenic claudication due to lumbar spinal stenosis: Patient had 1 lumbar decompression fusion tolerated as well as taken to orthopedic for postoperative. Postop he progressed appropriately. BECKY drain decreasing. Excellent strength testing. Pain well-controlled. Subsidy discharged home. Discharge orders instructions from the chart for further review. Total Time Total Time Spent Total Time Spent (In Minutes): 20 minutes Discharge Plan Discharge Items Patient Disposition: Home - Self-Care Reason For Visit: Spinal Stenosis, Lumbar Region Neurogenic Claudica Discharge Diagnosis: Lumbar spinal stenosis with neurogenic claudication Activity: As commented below Non-emergency contact: Primary Care Provider Call non-emergency contact if: you have any medication questions Follow-up/Referrals: Mari Khalil CRNP [Primary Care Provider] - Diet: Regular Addtl Attending Provider Instructions: ACTIVITY RECOMMENDATIONS: SELF CARE INSTRUCTIONS AFTER THORACIC/LUMBAR FUSIONS 1. You may walk to your tolerance. It is good exercise for your legs and back. Expect some back and intermittent leg aches and pains. 2. You may perform "counter-top" level activities (make a sandwich, elliott with a project, etc.). 3. No bending or lifting of more than 10 pounds or back twisting of any nature (roll like a log when turning in bed). 4. You may ride in a car for 20-30 minutes at a time. No driving until after your first visit with your doctor. 5. Frequent changes of position and restricting sitting to 30 minutes at a time will help limit the amount of back spasms and stiffness you may experience. 6. You may discontinue the use of ambulatory aids (cane, crutches, etc.) once y our strength and confidence allow. 7. You may logging specialist the shower and let water strike your incision when you arrive home at least once daily. Do not take a tub bath, sit in a hot tub or go into a swimming pool until after your first recheck in the office. SPECIAL CARE INSTRUCTIONS: VERY IMPORTANT TO READ AND REVIEW A. Your surgical incision has been closed with a cosmetic suture under the skin that will dissolve in about 6 weeks. In 14 days, you can use a pair of clean scissors and cut the suture that is left outside of the skin at the ends of your incision. 1. The small skin tapes can be removed 7 days after surgery if they have not fallen off by that point. 2. You may keep the wound open to air as much as possible to promote healing after post-op day number 5 unless told otherwise by your doctor. 3. If you think the wound looks like it is becoming infected (redness or worsening drainage) and/or you are experiencing fever, chill or worsening back pain and muscle spasms, contact the office so that we may evaluate you as soon as possible. B. Complications are uncommon, but please contact us if you have any signs or symptoms of: 1. wound infection (fever higher than 102.5 degrees F, redness, separation of wound, drainage, or increasing pain from the incision) 2. blood clots in legs (pain, swelling, redness and warmth in legs) 3. urinary tract infection (fever higher than 102.5 degrees F, burning upon urination or increased frequency of urination) 4. nerve problems (inability to walk on your toes or heels, numbness, loss of bowel or bladder control) 5. any other symptoms that concern you C. Please call the office at if you have any concerns or questions about your operation or recovery. D. No smoking! Smoking drastically decreases the chance of a solid fusion. E. Do not take any anti-inflammatory medications (Indocin, Advil, Motrin, Aspirin, Naprosyn, etc.) as these may inhibit the chance of a solid fusion. Tylenol is okay to take for pain. MANAGING PAIN AFTER SPINAL SURGERY 1. Narcotic medication is intended for short-term use and will be provided for surgical pain. Surgical pain usually lasts for a period of 4-6 weeks. Narcotic medication includes Percocet, Vicodin, Darvocet, Tylenol #3 or Lortab. 2. Longer-term pain is more appropriately treated with non-narcotic medication such as Tylenol ES. 3. Muscle spasm is not appropriately treated with narcotics. Muscle relaxers such as Soma, Flexeril or Skelaxin can be used along with Tylenol ES. 4. Remember that we all live with some "aches and pains". This is not unusual or uncommon after an injury or as we get older. a. Back pain is expected and may include muscle spasms for 4 to 6 weeks after surgery. The pain should gradually improve. If the pain worsens for no apparent reason, please contact the office. b. Intermittent leg pain may also be experienced and should not be concerned about unless it worsens for no apparent reason. If so, please contact the office. 5. We will provide appropriate medication within the normal guidelines of their prescribed use. We will also be very cautious and aware of potential abuse and extended duration of patients' medication needs. a. Pain medications are for your comfort and to assist with sleep and rest so that the tissue can heal. They are not provided in order to return to normal activity and should not be used through the day. To do so or worsening pain at night can result from ongoing tissue damage and development of tolerance to the prescribed medicine. 6. Please allow 2-3 days to process refills. Prescriptions will not be mailed but must be picked up at the office. FOLLOW UP VISIT: Keep your scheduled follow-up appointment. Any questions, please call the office at . Pending Studies at Discharge: No Stand-Alone Forms: My [facility] [employer] Smoking Cessation Medications and DC Order Prescriptions: New tramadol 50 mg tablet 50 mg PO Q6H PRN (Reason: pain, moderate) Qty: 30 0RF oxycodone 5 mg tablet 5 mg PO Q6H PRN (Reason: pain) Qty: 30 0RF Continued tamsulosin 0.4 mg Capsule 0.4 mg PO QAM Galique 1,000 mg PO QAM cholecalciferol (vitamin D3) [Vitamin D3] 125 mcg (5,000 unit) Tablet 125 mcg PO DAILY Discontinued naproxen 500 mg Tablet 500 mg PO BID PRN (Reason: Pain) Discharge Orders: Discharge Order (Routine); Ordered 07/17/23 Ordered By: Jacques Wang Admission Data Admit Date/Time: 07/15/23 12:23 Attending Provider: Erasmo Hill Admit Provider: Jacques Wang Primary Care Provider: Mari Khalil Other Providers: Antonieta Browning; Jacques Wang
--- NOTE | 2023-07-17 14:03 | Hospitalist Progress Note ---
Date of Service July 17, 2023 Assessment & Plan (1) Neurogenic claudication due to lumbar spinal stenosis: Plan: In short, Mr. Mirza is a 67 year old gentleman now s/p lumbar decompression and fusion of L3-L5 Neurogenic claudication s/p lumbar decompression/fusion L3-L5 POD 2 Acute blood loss anemia Performed by Dr Wang 07/15/2023 PT/OT per primary analgesia and DVTppx per PCP CBC downtrended to 11.9 post-op BUN/Cr wnl. PT/OT pain control Follow up with PCP #BPH continue tamsulosin # prior tobacco use encouraged continued cessation DVT SCDs Thank you for this consultation. We will follow the patient with you during their hospital stay. You can reach a member of the [facility] Hospitalist Team 01/09 via [employer] Admission and Anticipated Discharge Date Admission Date: July 15, 2023 Subjective Patient seen and examined at bedside. Comfortable; not in distress. Denies fever, chills, chest pain, shortness of breath, abdominal pain or urinary symptoms. No significant overnight events Physical Exam Physical Exam: GENERAL APPEARANCE: AxOx4, generally well-appearing M no acute distress. HEENT: NC, AT. MMM. EOMI, clear conjunctiva, oropharynx clear. NECK: Supple without lymphadenopathy. No stiffness or restricted ROM. HEART: Normal rate and regular rhythm, normal S1/S1, no m/r/g LUNGS: CTAB, moving air well. No crackles or wheezes are heard. ABDOMEN: Soft, nontender, nondistended with good bowel sounds heard. EXTREMITIES: Without cyanosis, clubbing or edema. NEUROLOGICAL: Grossly nonfocal. Alert and oriented, moving all 4 extremities. CN not formally tested but appear grossly intact. Skin: Warm and dry without any rash. Results & Data Results & Data Vital Signs (Past 12 Hours) Vital Signs Temp Pulse Resp BP Pulse Ox O2 Del Method 07/17/23 11:32 37.0 C 80 16 118/76 97 07/17/23 07:14 37.0 C 80 16 118/76 97 Room Air
== END 2023-07-17 13:13 | disposition home or self-care (01) | DRG 454 ==
LOC: ASU 09:29 → SUATTDRO 12:23 → PACUINP 12:23 → 3E 14:45
DX: Z88.5 Allergy status to narcotic agent; Z87.891 Personal history of nicotine dependence; D62 Acute posthemorrhagic anemia; M48.062 Spinal stenosis, lumbar region with neurogenic claudication; N40.0 Benign prostatic hyperplasia without lower urinary tract symptoms; M54.16 Radiculopathy, lumbar region